=== PATIENT | female | born 1990 | race Caucasian/White ===

== ENCOUNTER 2021-01-14 18:45 | Emergency (ER) | payer BC, OTHER ==
[2021-01-14 18:50] VITALS: BP 103/59; PULSE 85; TEMP 98.2; BMI 36.6
[2021-01-14] MEDS ORDERED: NAPROXEN 500 MG TABLET PO ONE (19:27)
[2021-01-14] MEDS ORDERED: NAPROXEN 500 MG TABLET ONE (19:30)
== END 2021-01-14 19:40 | disposition home or self-care (01) ==
LOC: FER 18:45
DX: S39.012A Strain of muscle, fascia and tendon of lower back, initial encounter (principal)
CPT/HCPCS: 99283-25